=== PATIENT | female | born 1980 | race Caucasian/White ===

== ENCOUNTER 2020-02-17 15:39 | Outpatient (RCR) | payer OTHER, SELFPAY ==
[2020-02-17] MEDS: RHO(D) IMMUNE GLOBULIN 300 MCG SYRINGE IM (19:12)
== END 2020-05-17 23:59 | disposition home or self-care (01) ==
LOC: ANHLAB 15:39
PROVIDERS: PCP Family Medicine; Visit Provider Obstetrics & Gynecology Gynecology
DX: Z29.13 Encounter for prophylactic Rho(D) immune globulin (principal); O36.0990 Maternal care for other rhesus isoimmunization, unspecified trimester, not applicable or unspecified; O26.851 Spotting complicating pregnancy, first trimester; Z3A.00 Weeks of gestation of pregnancy not specified
CPT/HCPCS: 36415; 85461; 90384; 96372; J2790

== ENCOUNTER → 2020-03-03 10:56 | Outpatient (CLI) | payer OTHER, SELFPAY ==
--- NOTE | ~2020-03-03 | US_ITS ---
EXAMINATION: US OB limited DATE: 03/03/2020 11:19 INDICATION: Subchorionic hematoma, first trimester TECHNIQUE: Real-time pelvic transabdominal and transvaginal ultrasound was performed. COMPARISON: None. FINDINGS: The uterus measures 12.1 x 5.7 x 8.1 cm. There is an intrauterine gestational sac. There i s a 2.4 x 1.3 x 3.2 cm complex hypoechoic area adjacent to the gestational sac. A yolk sac is identif ied. heart motion is identified measuring 190 beats per minute (bpm) by M-mode Doppler. IMPRESSION: 1. Complex hypoechoic area adjacent to the gestational sac which could reflect subchorionic hematoma or less likely failed twin . 2. Live intrauterine . Reviewed, dictated and finalized at location A. ANCE MANAGER
== END ==
PROVIDERS: PCP Family Medicine; Visit Provider Obstetrics & Gynecology Gynecology
DX: O46.90 Antepartum hemorrhage, unspecified, unspecified trimester (principal); Z3A.00 Weeks of gestation of pregnancy not specified
CPT/HCPCS: 76815

== ENCOUNTER 2020-03-07 14:47 | Observation (INO) | payer OTHER, SELFPAY ==
--- NOTE | ~2020-03-07 | MR_ITS ---
EXAMINATION: MR brain/brain stem wo con DATE: 03/08/2020 11:29 INDICATION: Right-sided cluster headache for the past 10 weeks. TECHNIQUE: Magnetic resonance imaging (MRI) of the brain and brainstem was performed without intraven ous contrast. Sequences included sagittal and axial T1-weighted SE, axial diffusion-weighted FS SE, a xial T2*-weighted GRE, axial T2-weighted FLAIR, and axial T2-weighted FSE. Apparent diffusion coeffi cient (ADC) maps were created. COMPARISON: None. FINDINGS: There are no areas of restricted diffusion to suggest acute infarction. No intracranial hemorrhage or abnormal intracranial mass lesion. Single nonspecific small focus of increased T2-weighted signal in tensity in the cerebral white matter of the paramedial right frontal lobe which is within normal limi ts for age. There are no intraparenchymal signal abnormalities seen on the other pulse sequences. The ventricles are symmetric and normal in size. There are no abnormal extra-axial fluid collections. Fl ow voids are seen in the cerebral arteries on the T2-weighted sequences consistent with their expecte d patency. Mild mucosal thickening the bilateral ethmoid sinuses. Visualized orbits and soft tissues are unremarkable. There are no areas of abnormal enhancement on the post contrast images. IMPRESSION: 1. Single small focus of nonspecific white matter T2 hyperintensity in the right frontal lobe which i s within normal limits for age. No acute intracranial process. Reviewed, dictated and finalized at location A. OM TURNING LATHE TENDER IMPRESSION: 1. Single small focus of nonspecific white matter T2 hyperintensity in the righ t frontal lobe which is within normal limits for age. No acute intracranial pro cess.
[2020-03-07 14:54] VITALS: BP 136/80; PULSE 100; RESP 16; TEMP 36.8; O2SAT 100
[2020-03-07 16:10] VITALS: BP 137/91; PULSE 91; RESP 18; TEMP 37.3; O2SAT 100
--- NOTE | 2020-03-07 16:15 | ED.HA ---
HPI - Headache General Chief Complaint: Headache Stated Complaint: MIGRAINE/ 10 WEEKS Time Seen by Provider: 03/07/20 15:32 Source: patient Mode of arrival: ambulatory Limitations: no limitations History of Present Illness HPI Narrative: Patient is a 39-year-old female who presents complaining of cluster headaches for the past few weeks. Patient is 10 weeks with an embryo transfer. 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 She reports taking large amounts of hormones such as progesterone and estrogen twice daily x9 weeks and right before Pep. She reports cluster headache starting 03/02 and increasing frequency and pain over the past 1 to 2 days. Patient keeps a journal with symptoms and times of headaches. Patient reports seeing PCP earlier this week given cefdinir for sinus infection and instructed to use a Sandra pot. She reports calling MACHINE HEEL SPRAYER, Dr. Oates, who directed her for ED evaluation today. She denies symptoms at this time. MD elicited complaint: headache Related Data Home Medications Medication Instructions Recorded Confirmed cholecalciferol (vitamin D3) 250 250 mcg PO WEEKLY 10/08/19 10/25/19 mcg (10,000 unit) capsule vitamin no.138-folic acid tablet PO 10/08/19 10/25/19 400 mcg-dha 25 mg chewable tablet cetirizine 10 mg capsule 10 mg PO DAILY 10/11/19 10/25/19 levothyroxine 25 mcg capsule 50 mcg PO DAILY cap 03/04/20 Allergies Allergy/AdvReac Type Severity Reaction Status Date / Time Cephalosporins Allergy Unknown Rash Verified 03/07/20 14:48 Penicillins Allergy Unknown Hives / Verified 03/07/20 14:48 Red Face Review of Systems Review of Systems: Narrative: CONSTITUTIONAL: Denies fever, chills, or sweats. EYES: Denies visual changes, redness, or discharge. ENT: Denies rhinorrhea, congestion, sore throat, or otalgia. CARDIOVASCULAR: Denies chest pain, palpitations, or edema. RESPIRATORY: Denies cough or dyspnea. GASTROINTESTINAL: Denies abdominal pain, nausea, vomiting, or diarrhea. GENITOURINARY: Denies dysuria or hematuria. SKIN: Denies rash or itching. MUSCULOSKELETAL: Denies back pain, joint pain, or myalgia. NEUROLOGIC: Reports intermittent headache with increased frequency PSYCHIATRIC: Denies anxiety or depression. [facility] Past Medical History Medical History (Updated 03/07/20 @ 17:23 by DUNIA Tavares) Active heathcare surrogate Asthma Congenital heart disease depression SVT (supraventricular tachycardia) Surgical History Surgical History [place] teeth extracted Family History Family History (Updated 03/07/20 @ 16:19 by DUNIA Tavares) Sibling Family history of cardiovascular disease Other Diabetes mellitus Other Cancer Hypertension Social History Social History (Updated 03/07/20 @ 16:19 by DUNIA Tavares) Smoking status: Never smoker Second hand tobacco smoke exposure: No Alcohol intake: never Substance use: never 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 HEAD: Normocephalic, atraumatic. EYES: EOMI. No redness or drainage. ENT: Mucous membranes pink and moist. CHEST: No respiratory distress. HEART: Regular rate and rhythm. No murmur appreciated. Normal peripheral pulses. EXTREMITIES: Normal range of motion. SKIN: Warm, dry, no rash. NEURO: No focal deficits. Alert and oriented x3. Gait steady. PSYCH: Normal affect. No signs of depression or anxiety. Course Vital Signs Vital signs: Vital Signs Temperature 36.8 C 03/07/20 14:54 Pulse Rate 100 03/07/20 14:54 Respiratory Rate 16 03/07/20 14:54 Blood Pressure 136/80 03/07/20 14:54 Pulse Oximetry 100 03/07/20 14:54 Temperature 36.8 C 03/07/20 14:54 Pulse Rate 100 03/07/20 1
--- NOTE | 2020-03-07 16:18 | PC.NURSE ---
This is an invitro surrogate with embryo transfer date of 01/14/2020. Patient is currently 10 weeks EGA. She has had to previous natural pregnancies that were both complicated by gestational SVT for which she took metoprolol during the .
[2020-03-07 17:56] VITALS: BP 124/97; PULSE 85; RESP 18; TEMP 36.8; O2SAT 100
[2020-03-07 18:56] VITALS: BP 125/92; PULSE 78; RESP 18; TEMP 36.7; O2SAT 100
[2020-03-07 19:12] VITALS: BP 136/79; PULSE 62; RESP 17; TEMP 36.4; O2SAT 100
[2020-03-07 19:13] VITALS: BMI 25.7
[2020-03-07 21:32] VITALS: BP 124/78; PULSE 75; RESP 18; TEMP 36.8; O2SAT 100
--- NOTE | 2020-03-07 23:28 | PC.NURSE ---
Pt c/o of having sharp headache pain on right side of head and right eye. Lasted for about an hour and half. Turned lights off in room and gave her an ice pack. Her headache did completely go away at 2215.
[2020-03-08 05:31] VITALS: BP 112/62; PULSE 70; RESP 16; TEMP 36.1; O2SAT 100
[2020-03-08 08:00] VITALS: O2SAT 100
--- NOTE | 2020-03-08 09:48 | PM.IMHP ---
H&P: HPI History of Present Illness Date/Time: 03/08/20 09:48 Chief Complaint: headache Narrative: Nhung Stanton is a 39 year old female at about 10 weeks EGA here with new onset headaches through ER. Patient states at peak pain is 9-10/10 and that lasts for 15-30 sec then tapers off over next 5-40 min. Longest peak has been 15 minutes. Cycles about 8-10x then gets a several hour break. This has been getting worse over last 10 days. Never had this type of headache before. Has just stopped her hormones after embryo transfer for sister. No other changes. She did try tylenol several times with no change. [facility] Past Medical History Medical History (Updated 03/07/20 @ 17:23 by DUNIA Tavares) Active heathcare surrogate Asthma Congenital heart disease depression SVT (supraventricular tachycardia) Surgical History Surgical History [place] teeth extracted Family History Family History Sibling Family history of cardiovascular disease Other Diabetes mellitus Other Cancer Hypertension Social History Social History (Updated 03/07/20 @ 16:19 by DUNIA Tavares) Smoking status: Never smoker Second hand tobacco smoke exposure: No Alcohol intake: never Substance use: never Substance use type: does not use 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 Gender identity (if verbalized by the patient): Female Spiritual care concerns: No Meds Home Medications and Allergies Home Medications Medication Instructions Recorded Confirmed Type cholecalciferol (vitamin D3) 250 250 mcg PO USEASDIRECTD 10/08/19 03/07/20 History mcg (10,000 unit) capsule vitamin no.138-folic acid 400 tablet PO DAILY 10/08/19 03/07/20 History 400 mcg-dha 25 mg chewable tablet cetirizine 10 mg capsule 10 mg PO DAILY 10/11/19 03/07/20 History cefdinir 300 mg capsule 300 mg PO Q12H #20 cap 03/04/20 03/07/20 Rx levothyroxine 25 mcg capsule 50 mcg PO DAILY cap 03/04/20 03/07/20 History aspirin 81 mg PO DAILY 03/07/20 03/07/20 History Allergies Allergy/AdvReac Type Severity Reaction Status Date / Time Cephalosporins Allergy Unknown Rash Verified 03/07/20 19:38 Penicillins Allergy Unknown Hives / Verified 03/07/20 19:38 Red Face Vital Signs Vital Signs - 24 hr 03/07/20 14:54 03/07/20 16:10 03/07/20 17:56 Temperature 98.2 F 99.2 F 98.2 F Pulse Rate 100 91 85 Respiratory Rate 16 18 18 Blood Pressure 136/80 137/91 H 124/97 H Pulse Oximetry 100 100 100 03/07/20 18:56 03/07/20 19:12 03/07/20 21:32 Temperature 98.0 F 97.6 F 98.3 F Pulse Rate 78 62 75 Respiratory Rate 18 17 18 Blood Pressure 125/92 H 136/79 124/78 Pulse Oximetry 100 100 100 03/08/20 05:31 Temperature 97.0 F L Pulse Rate 70 Respiratory Rate 16 Blood Pressure 112/62 Pulse Oximetry 100 Exam Const: General: cooperative and healthy appearing Neck: Neck: supple Resp: Effort & Inspection: normal respiratory effort Auscultation: clear to auscultation bilaterally Cardio: Rate: regular rate Rhythm: regular rhythm GI: GI Palp: No abdominal tenderness and Yes Soft to palpation Assessment and Plan Assessment and plan (1) Headache: Qualifiers: Headache chronicity pattern: acute headache Headache type: unspecified Intractability: intractable Qualified Code(s): R51.9 - Headache, unspecified Code(s): R51.9 - Headache, unspecified Status: Acute Assessment and Plan: description sounds like cluster headaches will order MRI for this am as that was the plan per ER PUBLIC RELATIONS CONSULTANT(they did not order) if MRI normal, will get neurology consult for outpatient and set up home O2
[2020-03-08 14:00] VITALS: BP 122/75; PULSE 87; RESP 17; TEMP 36.6; O2SAT 100
== END 2020-03-08 18:45 | disposition home or self-care (01) ==
LOC: ANHED 17:50 → ANH2MED 18:30
PROVIDERS: Admitting Provider Obstetrics & Gynecology Gynecology; Emergency Provider Nurse Practitioner; PCP Family Medicine; Visit Provider Obstetrics & Gynecology Gynecology
DX: O26.891 Other specified pregnancy related conditions, first trimester (principal); R51.9 Headache, unspecified; Z3A.10 10 weeks gestation of pregnancy
CPT/HCPCS: 70551; 99285; G0378

== ENCOUNTER → 2020-03-30 10:16 | Outpatient (CLI) | payer OTHER, SELFPAY ==
--- NOTE | ~2020-03-30 | US_ITS ---
EXAMINATION: US OB limited DATE: 03/30/2020 10:40 INDICATION: Subchorionic hematoma TECHNIQUE: Real-time ultrasound of the pelvis was performed. The interpreting radiologist was not pre sent for the study. COMPARISON: 03/03/2020 FINDINGS: The uterus measures 16.2 x 7.4 x 8.4 cm. There is a single living fetus in vertex presentation. Persi stent 2.7 x 1.6 x 1.5 cm hypoechoic likely subchorionic hematoma along the left inferior margin of th e gestational sac. heart rate is 171 beats per minute (bpm). The amniotic fluid index is cm, wh ich is normal. IMPRESSION: 1. Single living fetus in vertex presentation with heart rate of 171 bpm. 2. Persistent small subchorionic hematoma along the left inferior margin of the gestational sac. Reviewed, dictated and finalized at location B. HT REDUCING TECHNICIAN IMPRESSION: 1. Single living fetus in vertex presentation with heart rate of 171 bpm . 2. Persistent small subchorionic hematoma along the left inferior margin of the gestational sac.
== END ==
PROVIDERS: Visit Provider Obstetrics & Gynecology Gynecology
DX: O36.8910 Maternal care for other specified fetal problems, first trimester, not applicable or unspecified (principal); Z3A.00 Weeks of gestation of pregnancy not specified
CPT/HCPCS: 76815

== ENCOUNTER → 2020-04-13 10:46 | Outpatient (CLI) | payer OTHER, SELFPAY ==
--- NOTE | ~2020-04-13 | US_ITS ---
EXAMINATION: US OB follow up DATE: 04/13/2020 11:22 INDICATION: Subchorionic hematoma, second trimester TECHNIQUE: Real-time ultrasound of the pelvis was performed. The interpreting radiologist was not pre sent for the study. COMPARISON: 03/30/2020 FINDINGS: There is a single living fetus in variable presentation. The placenta is anterior/fundal. T here is a 1.6 x 0.5 cm hypoechoic area at the left lower margin of the placenta which is decreased in size. cardiac activity and movement are noted. heart rate is 169 beats per minute (bpm). The amniotic fluid index is subjectively normal. IMPRESSION: 1. Single living fetus in variable presentation. 2. Persistent but decreased hypoechoic area at the left lower margin of placenta, likely resolving he matoma. Reviewed, dictated and finalized at location A. ICAL HAEMATOLOGIST IMPRESSION: 1. Single living fetus in variable presentation. 2. Persistent but decreased hypoechoic area at the left lower margin of placent a, likely resolving hematoma.
== END ==
PROVIDERS: Visit Provider Obstetrics & Gynecology Gynecology
DX: O46.90 Antepartum hemorrhage, unspecified, unspecified trimester (principal); Z3A.00 Weeks of gestation of pregnancy not specified
CPT/HCPCS: 76816

== ENCOUNTER 2020-07-09 11:30 | Outpatient (RCR) | payer OTHER, SELFPAY ==
[2020-07-09 13:03] LABS: Hematocrit 40.5 % (37.0-47.0); Hemoglobin 13.9 g/dL (12.0-15.0)
[2020-07-09 13:23] LABS: Glucose 1 Hour PP 50gm Dose 97 mg/dL
[2020-07-09 14:02] LABS: HIV 1/2 Ab P24 Ag Result Negative (Negative)
[2020-07-09 14:09] LABS: Free T4 Free Thyroxine 0.95 ng/mL (0.78-2.19)
[2020-07-09] MEDS: RHO(D) IMMUNE GLOBULIN 300 MCG/2 ML SYRINGE IM (16:23)
== END 2020-10-07 23:59 | disposition home or self-care (01) ==
LOC: ANHLAB 11:30
PROVIDERS: PCP Family Medicine; Visit Provider Obstetrics & Gynecology Gynecology
DX: Z29.13 Encounter for prophylactic Rho(D) immune globulin (principal); Z11.4 Encounter for screening for human immunodeficiency virus [HIV]; O36.0190 Maternal care for anti-D [Rh] antibodies, unspecified trimester, not applicable or unspecified; Z3A.00 Weeks of gestation of pregnancy not specified
CPT/HCPCS: 36415; 82306; 82947; 84439; 84443; 85014; 85018; 85461; 86703; 90384; 96372; G0432; J2790

== ENCOUNTER 2020-09-08 16:08 | Inpatient (IN) | payer OTHER, SELFPAY ==
[2020-09-08] VITALS (8 sets, daily range): BP systolic 133–148; BP diastolic 80–95; PULSE 65–77; BMI 28.1
--- NOTE | ~2020-09-08 | US_ITS ---
EXAMINATION: US umbilical doppler, US OB follow up EXAM DATE: 09/09/2020 08:15 INDICATION: Preeclampsia. 3rd trimester. TECHNIQUE: Pelvic obstetrical transabdominal sonogram was performed by a technologist. There are mu ltiple grayscale and Doppler images available for interpretation. Comparison is made to prior examina tion from 04/13/2020. FINDINGS: There is a single fetus identified in breech presentation with a heart rate of 134 beats pe r minute. The placenta is located in the posterior fundal position. There is no sonographic evidence of retroplacental hemorrhage identified. The amniotic fluid index is 14.3 centimeters, which is norm al. BIOMETRIC DATA: Biparietal diameter (BPD): 8.7 cm ----------------> 35 weeks 1 day. Head circumference (HC): 32.0 cm ----------------> 36 weeks 0 days. Abdominal circumference (AC): 33.1 cm ----------> 37 weeks 0 days. Femur length (FL): 7.0 cm --------------------------> 35 weeks 6 days. These measurements are concordant. HC/AC ratio is 0.97 (The 5th -- 95th percentile range is 0.93-1.08. Estimated weight is 2935 g +/- 440 g. This is the 43rd percentile when the currently reported clinical gestation age 36 weeks 6 days, clinical estimated date of delivery (URSULA-OPE) 10/01 is used. F etal estimated gestational age based on measurements from this exam is 36 weeks 0 days, with an estim ated date of delivery (URSULA-AUA) 10/07. UMBILICAL ARTERY DOPPLER Systolic/diastolic average is 4.5, individual ratios obtained as follows: Near baby: 6.2, 6.8 Mid aspect: 4.2, 3.3 Near Placenta: 3.1, 3.3 (The 5th -- 95th percentile range is 2.0 -- 3.3). IMPRESSION: 1. Single fetus in breech presentation with heart rate 134 beats per minute. 2. Estimated weight of 2935 grams, 43rd percentile using the currently reported clinical gesta tion age of 36 weeks 6 days, URSULA(OPE) 10/01. 3. Elevated umbilical artery systolic/diastolic ratio average 4.5. 4. Normal amniotic fluid index 14.3 cm. Reviewed, dictated and finalized at location A. IMPRESSION: 1. Single fetus in breech presentation with heart rate 134 beats per minute. 2. Estimated weight of 2935 grams, 43rd percentile using the currently r eported clinical gestation age of 36 weeks 6 days, URSULA(OPE) 10/01. 3. Elevated umbilical artery systolic/diastolic ratio average 4.5. 4. Normal amniotic fluid index 14.3 cm.
--- NOTE | 2020-09-08 16:08 | OBADM ---
This patient, Nhung Stanton, admitted to the OB room OB Post 116 for observation. Patient/family oriented to hospital policies and general routines including ID bracelet, bed and alarms, visiting hours, pain management, procedures, bathroom and other care routines, personal items, smoking policy, room service/diet, and visiting hours. Patient/Family are encouraged to report perceived risks to care and to ask questions if they do not understand what they are told or what they should do.
--- NOTE | 2020-09-08 18:30 | PC.NURSE ---
Restinig quietly. Denies any pain. Discussed plan of care for tonight with blood pressures, AM labs, NST and AM ultrasound. 24 hour urine collection in progress and pt verbalizes understanding of instructions with collection.
--- NOTE | 2020-09-08 21:40 | PC.NURSE ---
Dr. Oates notified of pt blood pressures and pt. having decel. Will monitor heart tones tonight.
[2020-09-09] VITALS (11 sets, daily range): BP systolic 113–146; BP diastolic 68–98; PULSE 57–96
--- NOTE | 2020-09-09 01:08 | PC.NURSE ---
2150 Pt states she is ready for sleep. Appears comfortable. Vital signs as noted. Pt advised we will monitor FHT tonight due to isolated decel.Pt continues to collecr 24 hour urine.
[2020-09-09 05:11] LABS: Basophils Percent Auto 0.3 % (0.2-1.2); Eosinophils Absolute Auto 0.2 K/mm3 (0-0.3); Eosinophils Percent Auto 2.1 % (0-4.4); Hematocrit 41.2 % (37.0-47.0); Hemoglobin 13.9 g/dL (12.0-15.0); Immature Granulocyte Absolute 0.05 K/mm3 (0.00-0.031); Immature Granulocyte Percent A 0.6 % (0-0.5); Lymphocytes Absolute Auto 1.84 K/mm3 (0.9-3.2); Lymphocytes Percent Auto 21.3 % (18.3-44.2); Mean Corpuscular HGB Conc 33.7 g/dl (32-36); Mean Corpuscular Hemoglobin 32.8 pg (26-34); Mean Corpuscular Volume 97.2 fl (80-100); Mean Platelet Volume 12.2 fl (7.4-10.4); Monocytes Absolute Auto 0.8 K/mm3 (0.1-0.6); Monocytes Percent Auto 9.4 % (2.6-8.5); Neutrophils Absolute Auto 5.7 K/mm3 (1.3-6.7); Neutrophils Percent Auto 66.3 % (45.5-73.1); Platelet Count Result 97 k/mm3 (150-375); Red Blood Count 4.24 M/mm3 (4.2-5.4); Red Cell Distribution Width 12.6 % (11.5-14.5); White Blood Count 8.6 K/mm3 (4.5-10.0)
[2020-09-09 05:45] LABS: Alanine Aminotransferase 14 U/L (4-35); Albumin Level 3.2 g/dL (3.5-5.1); Alkaline Phosphatase 120 U/L (38-126); Anion Gap 6 mmol/L (8-16); Aspartate Amino Transferase 27 U/L (14-36); Bilirubin,Total 0.8 mg/dL (0.2-1.3); Blood Urea Nitrogen 12 mg/dL (7-17); Carbon Dioxide 22 mmol/L (22-30); Chloride 109 mmol/L (98-107); Estimated CRCL calculation 97 ml/min; Estimated Glomerular Filt Rate > 60; Glucose 76 mg/dL (65-105); Sodium 137 mmol/L (137-145); Uric Acid 6.3 mg/dL (2.5-7.5)
--- NOTE | 2020-09-09 08:23 | PC.NURSE ---
Dr Thacker here to see patient, plan of care discussed. Order for intermittent monitors. Plan to complete 24 hour urine and wait for results.
--- NOTE | 2020-09-09 09:44 | PC.NURSE ---
Dr Thacker notified of US results. No further orders at this time.
--- NOTE | 2020-09-09 16:28 | PM.OBPNVD ---
OB - PN: Subj Subjective Date/time seen: 09/09/20 16:28 Patient reports feels okay multiple questions about plan of care. Sister on phone present. concerns about breech baby. OB - PN: Obj Data Labs CBC & Chem 7: 09/09/20 04:57 09/09/20 04:57 Labs: Laboratory Results - last 24 hr 09/09/20 09/09/20 04:57 04:57 WBC 8.6 RBC 4.24 Hgb 13.9 Hct 41.2 MCV 97.2 MCH 32.8 MCHC 33.7 RDW 12.6 Plt Count 97 L MPV 12.2 H Immature Gran % (Auto) 0.6 H Neut % (Auto) 66.3 Lymph % (Auto) 21.3 [place] % (Auto) 9.4 H Eos % (Auto) 2.1 Baso % (Auto) 0.3 Lymph # (Auto) 1.84 [place] # (Auto) 0.8 H Eos # (Auto) 0.2 Baso # (Auto) 0.0 Abs Immat Gran (auto) 0.05 H Absolute Neuts (auto) 5.7 Absolute Nucleated RBC 0.0 Nucleated RBC % 0.0 Sodium 137 Potassium 4.0 Chloride 109 H Carbon Dioxide 22 Anion Gap 6 L BUN 12 Creatinine 0.80 Estim Creat Clear Calc 97 Estimated GFR > 60 Glucose 76 Uric Acid 6.3 Calcium 9.0 Total Bilirubin 0.8 AST 27 ALT 14 Alkaline Phosphatase 120 Total Protein 6.0 L Albumin 3.2 L Imaging Radiologist's impression: Impressions Doppler Study 09/09/20 08:38 IMPRESSION: 1. Single fetus in breech presentation with heart rate 134 beats per minute. 2. Estimated weight of 2935 grams, 43rd percentile using the currently reported clinical gestation age of 36 weeks 6 days, URSULA(OPE) 10/01. 3. Elevated umbilical artery systolic/diastolic ratio average 4.5. 4. Normal amniotic fluid index 14.3 cm. Obstetrics Ultrasound 09/09/20 08:38 IMPRESSION: 1. Single fetus in breech presentation with heart rate 134 beats per minute. 2. Estimated weight of 2935 grams, 43rd percentile using the currently reported clinical gestation age of 36 weeks 6 days, URSULA(OPE) 10/01. 3. Elevated umbilical artery systolic/diastolic ratio average 4.5. 4. Normal amniotic fluid index 14.3 cm. OB - PN A/P Assessment and Plan (1) Headache: Qualifiers: Headache chronicity pattern: acute headache Headache type: unspecified Intractability: intractable Qualified Code(s): R51.9 - Headache, unspecified Code(s): R51.9 - Headache, unspecified Status: Acute (2) PIH ( induced hypertension): Code(s): O13.9 - Gestational [-induced] hypertension without significant proteinuria, unspecified trimester Status: Acute Assessment and Plan: 24 hour urine pending. Delivery at 37 weeks Preeclamptic. Time Spent With Patient Time: Total time spent is greater than 50% in coordination of care (as documented) at patient's floor/unit and/or counseling patient:
[2020-09-09 18:20] LABS: Collection Time Urine 24 HOURS
[2020-09-09 18:28] LABS: Specific Gravity Ur 1.004
[2020-09-09 18:29] LABS: Patient Weight 190 Lbs
[2020-09-09 18:30] LABS: Total Volume 24 Hour Urine 7000 ml
--- NOTE | 2020-09-09 18:34 | PC.NURSE ---
Dr Kovasc updated on 24 hour urine being sent out for testing. Will not have the result tonight. Plan of expected management through the night.
[2020-09-09 18:41] LABS: Creatinine Clearance Urine 91.9 ml/min (75-125); Creatinine Urine 17.6 mg/dL
[2020-09-10] VITALS (89 sets, daily range): BP systolic 119–147; BP diastolic 74–97; PULSE 48–104; RESP 12–20; TEMP 35.7–36.6; O2SAT 74–100; BMI 28.1
[2020-09-10 05:00] LABS: Alanine Aminotransferase 16 U/L (4-35); Albumin Level 3.8 g/dL (3.5-5.1); Alkaline Phosphatase 145 U/L (38-126); Anion Gap 7 mmol/L (8-16); Aspartate Amino Transferase 31 U/L (14-36); Bilirubin,Total 0.8 mg/dL (0.2-1.3); Blood Urea Nitrogen 12 mg/dL (7-17); Calcium 9.5 mg/dL (8.4-10.2); Carbon Dioxide 23 mmol/L (22-30); Chloride 107 mmol/L (98-107); Estimated CRCL calculation 87 ml/min; Estimated Glomerular Filt Rate > 60; Glucose 80 mg/dL (65-105); Potassium 3.8 mmol/L (3.4-5.0); Sodium 137 mmol/L (137-145)
[2020-09-10 05:13] LABS: Hematocrit 46.9 % (37.0-47.0); Hemoglobin 15.8 g/dL (12.0-15.0); Mean Corpuscular HGB Conc 33.7 g/dl (32-36); Mean Corpuscular Volume 97.9 fl (80-100); Mean Platelet Volume 12.8 fl (7.4-10.4); Platelet Count Result 119 k/mm3 (150-375); Red Blood Count 4.79 M/mm3 (4.2-5.4); Red Cell Distribution Width 12.8 % (11.5-14.5); White Blood Count 10.3 K/mm3 (4.5-10.0)
--- NOTE | 2020-09-10 07:47 | PM.IMHP ---
H&P: HPI History of Present Illness Date/Time: 09/10/20 07:47 Chief Complaint: A headache Narrative: the patient is a 39-year-old 3 para 2 admitted with headache at 36-5/7 weeks initially now 37 weeks. Initial patient labs revealed probable preeclampsia and blood pressures were in the 130s to 140s over 90s. Patient has mild headache on and off since admission with no other PIH complaints. Patient reports good movement. ultrasound revealed the infant in the breech presentation with elevated Dopplers. The plan is to proceed with primary today. [facility], [facility] Past Medical History Medical History (Updated 09/10/20 @ 07:54 by Fatemeh Oates MD) Active heathcare surrogate is her sister's child Asthma Cluster headaches Hypothyroid (normal spontaneous vaginal delivery) 2009 twins 2012 PIH ( induced hypertension) depression SVT (supraventricular tachycardia) Surgical History Surgical History [place] teeth extracted Family History Family History Sibling Family history of cardiovascular disease Other Diabetes mellitus Other Cancer Hypertension Social History Social History (Updated 03/07/20 @ 16:19 by DUNIA Tavares) Smoking status: Never smoker Second hand tobacco smoke exposure: No Alcohol intake: never Substance use: never Substance use type: does not use 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 Gender identity (if verbalized by the patient): Female Spiritual care concerns: No Meds Home Medications and Allergies Home Medications Medication Instructions Recorded Confirmed Type cholecalciferol (vitamin D3) 250 250 mcg PO USEASDIRECTD 10/08/19 08/20/20 History mcg (10,000 unit) capsule vitamin no.138-folic acid 400 tablet PO DAILY 10/08/19 08/20/20 History 400 mcg-dha 25 mg chewable tablet cetirizine 10 mg capsule 10 mg PO DAILY 10/11/19 08/20/20 History levothyroxine 25 mcg capsule 50 mcg PO DAILY cap 03/04/20 08/20/20 History aspirin 81 mg PO DAILY 03/07/20 08/20/20 History Allergies Allergy/AdvReac Type Severity Reaction Status Date / Time Cephalosporins Allergy Unknown Rash Verified 03/07/20 19:38 Penicillins Allergy Unknown Hives / Verified 03/07/20 19:38 Red Face Vital Signs Vital Signs - 24 hr 09/09/20 09:02 09/09/20 10:47 09/09/20 13:30 Temperature Pulse Rate 69 74 89 Respiratory Rate Blood Pressure 138/91 H 134/85 127/84 Pulse Oximetry 09/09/20 15:31 09/09/20 18:01 09/09/20 18:03 Temperature Pulse Rate 76 96 96 Respiratory Rate Blood Pressure 145/89 H 146/97 H Pulse Oximetry 09/09/20 20:58 09/09/20 21:00 09/10/20 01:47 Temperature 96.8 F L Pulse Rate 81 77 80 Respiratory Rate 20 Blood Pressure 145/98 H 135/91 H 119/74 Pulse Oximetry 09/10/20 01:51 09/10/20 04:37 Temperature Pulse Rate 70 Respiratory Rate Blood Pressure 130/88 Pulse Oximetry 98 Exam Const: General: healthy appearing and no acute distress Nutritional Appearance: average body habitus Resp: Effort & Inspection: normal respiratory effort GI: GI Palp: Yes Other GI palpation findings present (gravid ) H&P: Results Labs Labs: Short CBC 09/09/20 09/09/20 09/09/20 Range/Units 04:57 04:57 17:12 WBC (4.5-10.0) K/mm3 RBC 4.24 (4.2-5.4) M/mm3 Hgb (12.0-15.0) g/dL Hct (37.0-47.0) % MCV 97.2 (80-100) fl MCH 32.8 (26-34) pg MCHC 33.7 (32-36) g/dl RDW 12.6 (11.5-14.5) % Plt Count (150-375) k/mm3 MPV 12.2 H (7.4-10.4) fl Immature Gran % (Auto) 0.6 H (0-0.5) % Neut % (Auto) 66.3 (45.5-73.1) % Lymph % (Auto) 21.3 (18.3-44.2) % [place] % (Auto) 9.4 H (2.6-8.5) % Eos % (Auto) 2.1 (0-4.4) % Baso % (Auto) 0.3 (0.2-1.2) % Lymph # (Aut
--- NOTE | 2020-09-10 07:59 | WPDHPUPDATE1 ---
History and Physical Update Update Date/Time: 09/10/20 07:59 History and Physical has been reviewed, including an updated exam of the patient. There are NO changes in the patient's condition. Risks, benefits, and alternatives have been discussed and questions answered. Patient agrees to proceed with procedure.
[2020-09-10] MEDS: LEVOTHYROXINE SODIUM 50 MCG TABLET PO (08:39)
[2020-09-10 09:32] LABS: Total Protein Urine 24 Hr 420 mg/24hr (0-149)
[2020-09-10 09:33] LABS: Total Protein Urine Random < 6.0 mg/dL (0.0-11.9)
[2020-09-10] MEDS: LACTATED RINGERS 1,000 ML 125 ML IV CONT ×2 (10:35→11:27)
[2020-09-10 12:11] LABS: Rapid Plasma Reagin Non-Reactive (NonReactive)
[2020-09-10] MEDS: CLINDAMYCIN 900 MG/D5W 50 ML 900 MG/50 ML PIGGYBACK 50 MG IVPB (12:28)
[2020-09-10] MEDS: GENTAMICIN SULFATE INJ 370 MG in DEXTROSE 5% 100 ML 100 MG IVPB (12:35)
--- NOTE | 2020-09-10 12:53 | WPDANESEFPP ---
Anes - Eval Final PreProcedure Day of Procedure 09/10/20 12:53 Patient weight: overweight Heart: regular rate and rhythm Lungs: clear to auscultation Airway: Mallampati scale class II Neurological: alert and oriented Last oral intake: >/= 8 hours ASA classification: II Emergent: no Anesthetic plan: proceed Anesthesia type and monitoring: regional spinal and standard monitoring Informed Consent: The patient's anesthetic plan and its attendant risks and benefits were discussed with the patient/family/POA. Questions were solicited and answers provided to the satisfaction of the patient/family/POA.
[2020-09-10] MEDS: KETOROLAC 30 MG/ML VIAL (*BKC) IV PUSH ×2 (13:14→22:41)
--- NOTE | 2020-09-10 13:25 | W.PM.PROC2 ---
Procedure Note - Detailed Date of Procedure 09/10/20 Pre-op Diagnosis IUP 37 weeks preeclampsia breech velementous insertion and bilobed placenta Post-op Diagnosis same Procedure Performed LT Surgeon Fatemeh Oates MD Anesthesia spinal Findings Female infant in the single footling breech presentation. Normal appearing tubes and ovaries. The uterus is heart-shaped with no septum. Apgars of 9 and 9 and the infant weighed 6 lb 6 oz Description of Procedure the patient was taken to the operating room and placed under spinal anesthesia in the dorsal supine position with a leftward tilt. Once anesthesia was deemed adequate she was prepped and draped in usual sterile fashion. A Pfannenstiel skin incision was made with a scalpel and carried down to the underlying layer of fascia which was nicked in the midline and extended laterally using Minor scissors. The fascia was dissected off using sharp and blunt dissection while tenting with Ochsner. The rectus muscles were in the midline and peritoneum was tented and entered with Metzenbaum. The incision is extended with blunt traction. the bladder blade is placed and the vesicouterine peritoneum tented entered with Metzenbaum oz. The bladder flap was created using sharp and blunt dissection. The bladder blade is replaced. The lower uterine segment was incised in a transverse fashion with the scalpel and extended laterally using blunt traction. The membranes were ruptured and clear fluid noted. The 's is noted to be and the single footling breech presentation the foot is delivered and the hips rotated and delivered to the scapula . The was rotated and the right arm splinted and delivered with the infant was rotated and the left arm was splinted and delivered. The is extended on the abdomen and the head delivered spontaneously. The cord was clamped and cut and the handed to the waiting OB nurse. The placenta was removed using manual traction. The placenta is noted to have to completely by lobes with only intervening membrane and vessels. The cord is inserted at the edge of the larger placental lobe. The uterus was cleared of all clots and debris and exteriorized. The lower uterine segment was then closed using 0 Monocryl in a running locked fashion with a same suture used to imbricate and obtain hemostasis. The cul-de-sac is irrigated and the uterus is returned to the abdomen. The gutters are irrigated. The incision was again inspected and noted to be hemostatic. The fascia was closed using 0 Vicryl in a running fashion. Subcutaneous tissues are irrigated and made hemostatic using Bovie cautery. Skin incision was closed using 4 0 Vicryl in a subcuticular fashion. Dermaflex was placed over the incision. Sponge, needle, and instrument counts are correct per the OR staff. Patient received clindamycin and gentamicin prior to skin incision due to allergies to both penicillin and cephalosporin. Estimated Blood Loss 275 Urine Output 300 Drains Yes (ballard) Pathology yes (placenta) Complications No immediate complications Condition stable Disposition floor
--- NOTE | 2020-09-10 13:34 | PM.OBDSVD ---
DS: Admitting Diagnosis Admitting Diagnosis Admitting Diagnosis: IUP 36 5/7 weeks headache DS: Discharge Diagnosis Discharge Diagnosis (1) delivery delivered: Code(s): O82 - Encounter for delivery without indication Status: Acute (2) Preeclampsia: Code(s): O14.90 - Unspecified pre-eclampsia, unspecified trimester Status: Acute (3) 37 weeks gestation of : Code(s): Z3A.37 - 37 weeks gestation of Status: Acute (4) Breech presentation: Code(s): O32.1XX0 - Maternal care for breech presentation, not applicable or unspecified Status: Acute OB - DS: Summary OB Procedures : NST and Ultrasound OB Procedures Intrapartum: low cervical, transverse OB Procedures: : None Peripartum Data Delivery Method: Section Procedures: Procedures Operation Date: 09/10/20 12:30 <No data on this case meets the specified criteria> complications: none Status at Discharge Functional status at discharge: independent ambulation Overall status at discharge: patient is progressing back to baseline Time Spent with Patient Time attestation: Total time spent providing and/or coordinating discharge services: DS: Data Data Completed and Pending Pending studies at discharge: Pending at discharge 09/10/20 12:57 Surgical [PTH] Routine Labs on day of discharge: Labs from last 24 hours 09/10/20 09/10/20 09/10/20 04:35 04:35 04:35 WBC RBC Hgb Hct MCV MCH MCHC RDW Plt Count MPV Sodium 137 Potassium 3.8 Chloride 107 Carbon Dioxide 23 Anion Gap 7 L BUN 12 Creatinine 0.90 Estim Creat Clear Calc 87 Estimated GFR > 60 Glucose 80 Uric Acid 6.0 Calcium 9.5 Total Bilirubin 0.8 AST 31 ALT 16 Alkaline Phosphatase 145 H Total Protein 7.0 Albumin 3.8 U Random Total Protein Ur 24 Hour Volume Urine Creatinine Creatinine Clearance Ur Total Protein 24 Hr RPR Non-reactive Blood Type B Negative Antibody Screen Positive Antibody Identification Passive Due to RH Imm Glob Antigen Identification Cancelled DESTINEY, IgG Interpret Not Performed DESTINEY, Poly Interpret Negative DESTINEY, Complement Interp Not Performed 09/10/20 09/09/20 04:35 17:12 WBC 10.3 H RBC 4.79 Hgb 15.8 H Hct 46.9 MCV 97.9 MCH 33.0 MCHC 33.7 RDW 12.8 Plt Count 119 L MPV 12.8 H Sodium Potassium Chloride Carbon Dioxide Anion Gap BUN Creatinine Estim Creat Clear Calc Estimated GFR Glucose Uric Acid Calcium Total Bilirubin AST ALT Alkaline Phosphatase Total Protein Albumin U Random Total Protein < 6.0 Ur 24 Hour Volume 7000 Urine Creatinine 17.6 Creatinine Clearance 91.9 Ur Total Protein 24 Hr 420 H RPR Blood Type Antibody Screen Antibody Identification Antigen Identification DESTINEY, IgG Interpret DESTINEY, Poly Interpret DESTINEY, Complement Interp Discharge Plan Discharge Attending physician on discharge: Fatemeh Oates Discharging Clinician: Fatemeh Oates Patient Disposition: Home, Self-Care Activity: may shower, july drive after 2 weeks and pelvic rest Diet: regular Wound Care Instructions: incision open to air Patient Instructions: Antibiotic Form Stand Alone Forms: General Discharge Information Follow-up/Referrals: Fatemeh Oates MD [Physician] - 1 Week Discharge Medications: New hydrocodone-acetaminophen 5-325 mg Tablet 1 tablet PO Q3H PRN (Reason: Moderate Pain (4-6)) Qty: 20 RF: 0 Continued cholecalciferol (vitamin D3) 250 mcg (10,000 unit) capsule 250 mcg PO USEASDIRECTD RF: 0 Alive 400 mcg- 25 mg tablet,chewable 400 tablet PO DAILY RF: 0 levothyroxine 25 mcg capsule 50 mcg PO DAILY RF: 0 Discontinued cetirizine 10 mg cap
[2020-09-10] MEDS: OXYTOCIN 30 UNITS/NS 500 ML 30 UNITS/500 ML BAG 125 UNITS IV CONT (14:30)
[2020-09-10] MEDS: MAGNESIUM SULF 4 GM/WATER100ML 4 GM/100 ML BAG IVPB (14:31)
[2020-09-10] MEDS: MAGNESIUM SULF 20GM/WATER500ML 500 ML 50 MG IV CONT (15:01)
[2020-09-10] MEDS: HYDROcodone/acetaminophen (*CRX) 5-325 MG TABLET 1 TAB PO ×2 (16:47→22:41)
--- NOTE | 2020-09-10 17:23 | PC.NURSE ---
Patient transferred to post room #1723 via stretcher. Support person present. Oriented to unit, room, information board, rooming in, admission packet and security measures. Patient verbalizes understanding.
--- NOTE | 2020-09-10 17:45 | PC.NURSE ---
1725--Pt. transferred to room 280 via stretcher and report to [facility] RN to assume care of pt.
[2020-09-11] VITALS (7 sets, daily range): BP systolic 111–138; BP diastolic 70–96; PULSE 59–81; RESP 14–18; TEMP 35.9–37.1; O2SAT 97–100
[2020-09-11] MEDS: SIMETHICONE 80 MG TAB.CHEW PO ×5 (01:20→18:59)
[2020-09-11] MEDS: MAGNESIUM SULF 20GM/WATER500ML 500 ML 50 MG IV CONT (01:20)
[2020-09-11] MEDS: HYDROcodone/acetaminophen (*CRX) 5-325 MG TABLET 1 TAB PO ×3 (04:37→18:58)
[2020-09-11] MEDS: diphenhydrAMINE HCl INJ 50 MG/ML VIAL 12.5 MG IV PUSH (04:39)
[2020-09-11 05:47] LABS: Basophils Percent Auto 0.2 % (0.2-1.2); Eosinophils Percent Auto 0.2 % (0-4.4); Hematocrit 39.7 % (37.0-47.0); Hemoglobin 13.8 g/dL (12.0-15.0); Immature Granulocyte Absolute 0.09 K/mm3 (0.00-0.031); Immature Granulocyte Percent A 0.6 % (0-0.5); Lymphocytes Absolute Auto 1.64 K/mm3 (0.9-3.2); Lymphocytes Percent Auto 10.5 % (18.3-44.2); Mean Corpuscular HGB Conc 34.8 g/dl (32-36); Mean Corpuscular Hemoglobin 33.2 pg (26-34); Mean Corpuscular Volume 95.4 fl (80-100); Mean Platelet Volume 12.7 fl (7.4-10.4); Monocytes Percent Auto 6.2 % (2.6-8.5); Neutrophils Absolute Auto 12.8 K/mm3 (1.3-6.7); Neutrophils Percent Auto 82.3 % (45.5-73.1); Platelet Count Result 131 k/mm3 (150-375); Red Blood Count 4.16 M/mm3 (4.2-5.4); Red Cell Distribution Width 12.5 % (11.5-14.5); White Blood Count 15.6 K/mm3 (4.5-10.0)
[2020-09-11] MEDS: LEVOTHYROXINE SODIUM 50 MCG TABLET PO (07:44)
--- NOTE | 2020-09-11 07:57 | P.PNOB_ITS ---
OB - PN: Subj Subjective Date/time seen: 09/11/20 07:57 Doing well no complaints pain controlled OB - PN: Obj Data Labs CBC & Chem 7: 09/11/20 04:57 09/10/20 04:35 Labs: Laboratory Results - last 24 hr 09/09/20 09/10/20 09/10/20 17:12 04:35 04:35 WBC RBC Hgb Hct MCV MCH MCHC RDW Plt Count MPV Immature Gran % (Auto) Neut % (Auto) Lymph % (Auto) Bledsoe % (Auto) Eos % (Auto) Baso % (Auto) Lymph # (Auto) Bledsoe # (Auto) Eos # (Auto) Baso # (Auto) Abs Immat Gran (auto) Absolute Neuts (auto) Absolute Nucleated RBC Nucleated RBC % U Random Total Protein < 6.0 Creatinine Clearance 91.9 Ur Total Protein 24 Hr 420 H RPR Non-reactive Blood Type B Negative Antibody Screen Positive Antibody Identification Passive Due to RH Imm Glob Antigen Identification Cancelled DESTINEY, IgG Interpret Not Performed DESTINEY, Poly Interpret Negative DESTINEY, Complement Interp Not Performed 09/11/20 04:57 WBC 15.6 H RBC 4.16 L Hgb 13.8 Hct 39.7 MCV 95.4 MCH 33.2 MCHC 34.8 RDW 12.5 Plt Count 131 L MPV 12.7 H Immature Gran % (Auto) 0.6 H Neut % (Auto) 82.3 H Lymph % (Auto) 10.5 L Bledsoe % (Auto) 6.2 Eos % (Auto) 0.2 Baso % (Auto) 0.2 Lymph # (Auto) 1.64 Bledsoe # (Auto) 1.0 H Eos # (Auto) 0.0 Baso # (Auto) 0.0 Abs Immat Gran (auto) 0.09 H Absolute Neuts (auto) 12.8 H Absolute Nucleated RBC 0.0 Nucleated RBC % 0.0 U Random Total Protein Creatinine Clearance Ur Total Protein 24 Hr RPR Blood Type Antibody Screen Antibody Identification Antigen Identification DESTINEY, IgG Interpret DESTINEY, Poly Interpret DESTINEY, Complement Interp OB - PN A/P Assessment and Plan (1) delivery delivered: Code(s): O82 - Encounter for delivery without indication Status: Acute Assessment and Plan: continue with postop care. D/c magnesium 24 hours post continue to monitor bps. Time Spent With Patient Time: Total time spent is greater than 50% in coordination of care (as do cumented) at patient's floor/unit and/or counseling patient: Exam Narrative: Exam Narrative: incision: c/d/i ff below umbilicus
[2020-09-11] MEDS: MULTIVIT/MIN/PREN/FOL AC/IRON TABLET 1 TAB PO (09:15)
[2020-09-11] MEDS: DOCUSATE SODIUM 100 MG CAPSULE PO ×2 (09:15→19:02)
[2020-09-11] MEDS: DEXTROSE 5%/0.45% SOD CHL 1,000 ML 125 ML IV CONT (10:35)
[2020-09-11] MEDS: IBUPROFEN 600 MG TABLET PO ×2 (12:04→18:59)
--- NOTE | 2020-09-11 13:22 | WPDANLDNPN2 ---
Anes-Prog Note L&D-Neuraxial Date/Time: 09/11/20 13:22 Neuraxial medications: intrathecal PF morphine Opiod-related complaints: none Patient feedback: Patient satisfied with post-operative pain management.
--- NOTE | 2020-09-11 13:22 | WPDANLDPN2 ---
Anes-Prog Note L&D Date/Time: 09/11/20 13:22 Comfortable throughout: section Neuraxial method: spinal Epidural/Spinal procedure site: clean & non-tender Neuro status: Neuro function grossly intact. Cardiovascular status: normal Respiratory status: normal Airway patency: baseline Mental status: baseline Post-Op hydration status: normal Vital Signs: Last Vital Signs Temp 36.6 C 09/11/20 12:45 Pulse 81 09/11/20 12:45 Resp 16 09/11/20 12:45 BP 135/92 H 09/11/20 12:45 Pulse Ox 100 09/11/20 12:45 Pain score (VAS): 2 I/O: Intake & Output 09/10/20 09/11/20 09/11/20 23:59 07:59 15:59 Intake Total 200 900 Output Total 074 1617 Balance -725 -8619 Patient feedback: Patient satisfied with anesthetic care.
[2020-09-11] MEDS: RHO(D) IMMUNE GLOBULIN 300 MCG/2 ML SYRINGE IM (14:23)
--- NOTE | 2020-09-11 15:15 | PC.NURSE ---
consult with pt., mother is currently using the hospital pump without difficulties/discomfort. Mother would like instructions on her Spectra pump. Reviewed breast pump care and usage, pumping schedule, nipple care, and collection and storage of breast milk. Encouraged [id number], breast massage and manual expression to stimulate supply. Discussed milk supply and transitioning to breastmilk. Assessed patient for correct flange size, placement and draw. Patient verbalizes and demonstrates understanding of instructions.
[2020-09-11] MEDS: ONDANSETRON INJ 4 MG/2 ML VIAL IV PUSH (16:05)
[2020-09-12] MEDS: IBUPROFEN 600 MG TABLET PO ×4 (01:10→19:25)
[2020-09-12] MEDS: SIMETHICONE 80 MG TAB.CHEW PO ×3 (01:12→19:24)
[2020-09-12] MEDS: HYDROcodone/acetaminophen (*CRX) 10-325 MG TABLET 1 TAB PO (01:14)
[2020-09-12 04:25] VITALS: BP 125/75; PULSE 67; RESP 18; TEMP 36.6
[2020-09-12] MEDS: LEVOTHYROXINE SODIUM 50 MCG TABLET PO (07:11)
[2020-09-12 07:15] VITALS: BP 126/86; PULSE 64; RESP 16; TEMP 37; O2SAT 100
[2020-09-12] MEDS: MULTIVIT/MIN/PREN/FOL AC/IRON TABLET 1 TAB PO (08:46)
[2020-09-12] MEDS: DOCUSATE SODIUM 100 MG CAPSULE PO ×2 (08:46→17:14)
[2020-09-12] MEDS: HYDROcodone/acetaminophen (*CRX) 5-325 MG TABLET 1 TAB PO ×3 (08:47→19:24)
--- NOTE | 2020-09-12 10:44 | PM.OBPNVD ---
OB - PN: Subj Subjective Date/time seen: 09/12/20 10:44 Patient comments: no complaints and pain well controlled OB - PN: Obj Data Labs CBC & Chem 7: 09/11/20 04:57 09/10/20 04:35 Labs: Laboratory Results - last 24 hr 09/11/20 05:05 Blood Type B Negative Antibody Screen TNP Screen Negative Baby's Blood Type A pos Baby's DESTINEY Negative Doses of RhIg Required 1 OB - PN A/P Assessment and Plan (1) delivery delivered: Code(s): O82 - Encounter for delivery without indication Status: Acute Assessment and Plan: Continue care (2) Preeclampsia: Code(s): O14.90 - Unspecified pre-eclampsia, unspecified trimester Status: Acute Assessment and Plan: continue close observation good diuresis BP decreased last 12 hours Time Spent With Patient Time: Total time spent is greater than 50% in coordination of care (as documented) at patient's floor/unit and/or counseling patient: Exam Narrative: Exam Narrative: Inc c/d/i : Bimanual exam- vagina & uterus: other (Uterus firm, nt @U)
[2020-09-12 11:45] VITALS: BP 146/91; PULSE 60; RESP 16; TEMP 36.7; O2SAT 100
[2020-09-12 16:00] VITALS: BP 127/87; PULSE 74; RESP 16; TEMP 36.1; O2SAT 100
--- NOTE | 2020-09-12 16:34 | PC.NURSE ---
Patient viewed the discharge video Mother & Baby Care, The First Two Weeks . Patient was given the opportunity and encouraged to ask questions. Patient verbalized understanding of information shared and has been given the mother/baby guide for home reference.
[2020-09-12 20:05] VITALS: BP 133/90; PULSE 62; RESP 16; TEMP 36.6
[2020-09-13] VITALS: BP 131/68; PULSE 72
[2020-09-13] MEDS: SIMETHICONE 80 MG TAB.CHEW PO (01:15)
[2020-09-13] MEDS: IBUPROFEN 600 MG TABLET PO ×3 (01:15→12:40)
[2020-09-13] MEDS: HYDROcodone/acetaminophen (*CRX) 5-325 MG TABLET 1 TAB PO ×3 (04:09→12:41)
[2020-09-13 04:15] VITALS: BP 136/89; PULSE 74
[2020-09-13 06:45] VITALS: BP 139/87; PULSE 66; RESP 18; TEMP 36.6
[2020-09-13] MEDS: MULTIVIT/MIN/PREN/FOL AC/IRON TABLET 1 TAB PO (06:52)
[2020-09-13] MEDS: LEVOTHYROXINE SODIUM 50 MCG TABLET PO (06:52)
[2020-09-13] MEDS: DOCUSATE SODIUM 100 MG CAPSULE PO (06:52)
--- NOTE | 2020-09-13 09:46 | PM.OBPNVD ---
OB - PN: Subj Subjective Date/time seen: 09/13/20 09:46 Patient comments: no complaints and pain well controlled OB - PN: Obj Data Labs CBC & Chem 7: 09/11/20 04:57 09/10/20 04:35 OB - PN A/P Assessment and Plan (1) delivery delivered: Code(s): O82 - Encounter for delivery without indication Status: Acute Assessment and Plan: Doing well DC home (2) Preeclampsia: Code(s): O14.90 - Unspecified pre-eclampsia, unspecified trimester Status: Acute Assessment and Plan: BP stable good diuresis unsure bc Time Spent With Patient Time: Total time spent is greater than 50% in coordination of care (as documented) at patient's floor/unit and/or counseling patient: Exam Narrative: Exam Narrative: inc c/d/i : Bimanual exam- vagina & uterus: other (Uterus firm, nt @U)
[2020-09-16 10:23] VITALS: BP 144/93; PULSE 101; RESP 16; TEMP 37.2; O2SAT 98
--- NOTE | 2020-09-16 10:30 | PC.NURSE ---
Addition BP checks done 5-7 minutes apart during appt: 124/101 and 143/94 as well as first BP taken noted in Post Discharge Assessment.
--- NOTE | 2020-09-16 10:50 | PC.NURSE ---
BPs call to OB office. Report to Nurse Alyssa. Orders taken from to have patient rest, hydrate, take a few BPs at home and call with diastolic over 110 or signs of Pre-E. Patient is to keep scheduled appt for tomorrow. Patient told if unable to get ahold of office to report to L&D. Patient agrees to plan.
== END 2020-09-13 14:27 | disposition home or self-care (01) | DRG 788 ==
LOC: ANHOBPP 09-10 13:37 → ANHOB2 09-10 17:28
PROVIDERS: Obstetrics & Gynecology; Admitting Provider Obstetrics & Gynecology Gynecology; PCP Family Medicine; Visit Provider Obstetrics & Gynecology Gynecology
PROC: 10D00Z1 Extraction of Products of Conception, Low, Open Approach (ICD-10-PCS; CPT 59514; principal; 2020-09-10 12:30)
DX: O14.94 Unspecified pre-eclampsia, complicating childbirth (principal); Z37.0 Single live birth; Z3A.37 37 weeks gestation of pregnancy; O32.8XX0 Maternal care for other malpresentation of fetus, not applicable or unspecified; O43.193 Other malformation of placenta, third trimester; O99.284 Endocrine, nutritional and metabolic diseases complicating childbirth; E03.9 Hypothyroidism, unspecified; O99.52 Diseases of the respiratory system complicating childbirth; J45.909 Unspecified asthma, uncomplicated; O43.123 Velamentous insertion of umbilical cord, third trimester
CPT/HCPCS: 36415; 59025; 76816; 76820; 80053; 81003; 81050; 82570; 82575; 84156; 84550; 85025; 85027; 85461; 86592; 86850; 86880; 86900; 86901; 86902; 87086; 87088; 88307; 90384; A9270; G0378; J0131; J1100; J1200; J1580; J1885; J2274; J2370; J2405; J2590; J2790; J3475; J7120

== ENCOUNTER 2020-09-08 16:14 | Outpatient (RCR) | payer OTHER, SELFPAY ==
[2020-08-06 08:12] VITALS: BP 126/74; PULSE 85
[2020-08-20 08:46] VITALS: BP 125/69; PULSE 85
[2020-09-08 16:43] VITALS: BP 138/86; PULSE 84
[2020-09-08 17:17] LABS: Basophils Percent Auto 0.2 % (0.2-1.2); Eosinophils Absolute Auto 0.1 K/mm3 (0-0.3); Hematocrit 41.4 % (37.0-47.0); Hemoglobin 13.8 g/dL (12.0-15.0); Immature Granulocyte Absolute 0.04 K/mm3 (0.00-0.031); Immature Granulocyte Percent A 0.5 % (0-0.5); Lymphocytes Absolute Auto 1.76 K/mm3 (0.9-3.2); Lymphocytes Percent Auto 20.3 % (18.3-44.2); Mean Corpuscular HGB Conc 33.3 g/dl (32-36); Mean Corpuscular Hemoglobin 32.6 pg (26-34); Mean Corpuscular Volume 97.9 fl (80-100); Mean Platelet Volume 12.6 fl (7.4-10.4); Monocytes Absolute Auto 0.8 K/mm3 (0.1-0.6); Monocytes Percent Auto 9.3 % (2.6-8.5); Neutrophils Percent Auto 68.7 % (45.5-73.1); Platelet Count Result 104 k/mm3 (150-375); Red Blood Count 4.23 M/mm3 (4.2-5.4); Red Cell Distribution Width 12.8 % (11.5-14.5); White Blood Count 8.7 K/mm3 (4.5-10.0)
[2020-09-08 17:19] LABS: Add Urine Microscopic? NO; Appearance Urine Clear (Clear); Bilirubin Urine Negative (Negative); Blood Urine Negative (Negative); Color Urine Straw (Yellow); Glucose Urine UA Negative (Negative); Ketones Urine Negative (Negative); Leukocyte Esterase Ur Negative LEU/UL (NEGATIVE); Nitrate Urine Negative (Negative); Protein Urine Negative (Negative); Specific Grav Ur 1.006 (1.001-1.035); Urobilinogen Urine Negative mg/dL (<2.0)
[2020-09-08 17:24] LABS: Creatinine Urine 41.5 mg/dL; Total Protein Urine Random 13 mg/dL; Ur Ttl Prot Creatinine Ratio 0.31 mg/mg (0-0.20)
[2020-09-08 17:31] LABS: Alanine Aminotransferase 16 U/L (4-35); Albumin Level 3.8 g/dL (3.5-5.1); Alkaline Phosphatase 128 U/L (38-126); Anion Gap 5 mmol/L (8-16); Aspartate Amino Transferase 30 U/L (14-36); Bilirubin,Total 0.7 mg/dL (0.2-1.3); Blood Urea Nitrogen 16 mg/dL (7-17); Calcium 9.6 mg/dL (8.4-10.2); Carbon Dioxide 25 mmol/L (22-30); Chloride 106 mmol/L (98-107); Estimated Glomerular Filt Rate 56; Glucose 91 mg/dL (65-105); Potassium 3.9 mmol/L (3.4-5.0); Sodium 136 mmol/L (137-145); Uric Acid 6.1 mg/dL (2.5-7.5)
--- NOTE | 2020-09-08 17:38 | PC.NURSE ---
Called Dr. Oates with lab results. Keep overnight. Changed to observation.
== END 2020-09-11 08:13 | disposition home or self-care (01) ==
LOC: ANHOBOP 16:14
PROVIDERS: PCP Family Medicine; Visit Provider Obstetrics & Gynecology Gynecology
DX: O43.123 Velamentous insertion of umbilical cord, third trimester (principal); Z3A.32 32 weeks gestation of pregnancy; Z3A.34 34 weeks gestation of pregnancy; Z3A.36 36 weeks gestation of pregnancy
CPT/HCPCS: 36415; 59025; 80053; 81003; 82570; 84156; 84550; 85025; 87086; 87088; J0131; J1100; J1885; J2274; J2370; J2405; J2590

== ENCOUNTER 2020-12-24 09:00 | Outpatient (RCR) | payer OTHER, SELFPAY ==
--- NOTE | 2020-11-26 13:48 | PTOPEVAL ---
INITIAL PHYSICAL THERAPY EVALUATION and PLAN OF CARE Thank you for referring Nhung Stanton to [facility].? Nhung is scheduled to be seen for physical therapy? 10-14 days x 2 visits. Please review, sign, date and return this plan of care MENDOZA. I agree with and certify that the following plan of care is medically necessary. Referring Physician Date Admitting Provider: Attending Provider: Fatemeh Oates MD Referring Provider: *PT Outpatient Evaluation Start: 11/26/20 12:42 Freq: Status: Active Protocol: Document 11/26/20 12:42 SETH (Rec: 11/26/20 13:48 SETH [id number]) Therapy Assessment Status Assessment Status Assessment Status Evaluation Outpatient Past Medical History Past Medical History Source of Past Medical History Recalled from Previous Visit, Confirmed with Patient/Family Neurological History Hx Neurological Disorders No Significant History Cardiovascular History Hx Other Cardiac Disorders Yes: related SVT Respiratory History Hx Asthma Yes: in childhood Gastrointestinal History Hx Gastrointestinal Disorders No Significant History Genitourinary History Hx Genitourinary Disorders No Significant History Musculoskeletal History Hx Musculoskeletal Disorders No Significant History Hematological History Hx Hematological Disorders No Significant History Endocrine History Hx Hypothyroidism Yes: related - no meds at present HEENT History Hx HEENT Disorders No Significant History Integumentary History Hx Skin Disorders No Significant History Reproductive History Hx Reproductive Disorders No Significant History Psychosocial History Hx Psychiatric Disorders No Significant History Pain History History of Any Previous or Ongoing No Significant History Instance of Pain Anesthesia History Hx Anesthesia Reactions No Significant History Evaluation Information Problem Diagnosis pelvic floor pain Onset September 2020 Subjective Information Nhung states that she has an Query Text:As Reported By Patient/ 11 y.o. and 9 y.o. twins - Family had them vaginally - no complications. Then 2 months ago delivered surrogate niece via C section - due to fetus being breech. Since then Nhung has noticed decreased abdominal strength. During - did have an umbilical hernia - which will be surgically repaired in 1 month. Prior Level of Function Activity L
--- NOTE | 2020-12-24 09:47 | PTOPEVAL ---
PHYSICAL THERAPY DISCHARGE SUMMARY Thank you for referring Nhung Stanton to [facility].? Nhung has been seen in PT for a total of 3 visits. She has regained lower abdominal strength, able to run without difficulty, and has returned to full work activities. She is ready for d/c from PT to [facility]. I agree Nhung's discharge from PT. Referring Physician Date Admitting Provider: Attending Provider: Fatemeh Oates MD Referring Provider: Therapy Assessment Status Assessment Status Assessment Status Discharge Evaluation Information Problem Diagnosis pelvic floor pain Subjective Information Nhung reports that she is Query Text:As Reported By Patient/ feeling better. Having less Family clicking with R hip flexor - doing stretching. Able to run 5K with daughter - no problems. Able to lift heavier dogs up from floor now for Xrays without problems. Pain Assessment Timing of Pain Assessment Timing of Pain Assessment Assessment Self Report Self Report Pain Level 0 Cervical and Lumbar Muscle Testing Lumbar Strength Upper Abdominal Strength 5 Normal Lower Abdominal Strength 4+ Good+ General Exercise General Exercises Exercise Location core strengthening Exercise Description instructed in how to perform Query Text:Record Sets, Reps, levator ani contraction prior Resistance, and Position to TrA contraction Bent knee fall outs x 15 - blue theraband hip extension - bicycle - x15 reps - added arms bridging with marching x 10 reps Quadruped - altenate arm/leg lifts x 10 reps - reviewed Clams - blue theraband - 10 reps/side Lateral planks - knees flexed - lifting top leg with knees flexed - 10 reps Fwd planks - with arm extension - plank on knees - 3 reps - leading with each arm 75 cm Czech ball walk out into bridging - marching - with progression into leg extension - 10 reps - rotation - for obliques - reviewed hands/knees over ball - reviewed - planks on b
== END 2020-12-25 14:08 | disposition home or self-care (01) ==
LOC: ANHPT 09:00
PROVIDERS: PCP Family Medicine; Visit Provider Obstetrics & Gynecology Gynecology
DX: R10.2 Pelvic and perineal pain (principal)
CPT/HCPCS: 97110; 97161

== ENCOUNTER 2020-12-25 02:51 | Day surgery (SDC) | payer OTHER, SELFPAY ==
[2020-12-16 12:06] VITALS: BMI 23.6
[2020-12-25] MEDS: ACETAMINOPHEN 500 MG TABLET 1000 MG PO (10:57)
[2020-12-25] MEDS: KETOROLAC 15 MG/ML VIAL (*BKC) IV PUSH (10:57)
[2020-12-25] MEDS: LACTATED RINGERS 1,000 ML 30 ML IV CONT ×2 (10:58→13:34)
[2020-12-25 11:00] VITALS: BP 111/82; PULSE 72; RESP 16; TEMP 36.3; O2SAT 100
[2020-12-25] MEDS: SCOPOLAMINE 1.5 MG PATCH TRANSDERM (11:00)
--- NOTE | 2020-12-25 11:06 | WPDANESEPPF ---
Anes - Initial Pre Proc Eval Procedure: Operation Date: 12/25/20 12:00 Proposed Procedures p Umbilical Hernia Repair With Possible Mesh - Douglas Valero DO s Excision Right Upper Back Mass, Excision Right Thigh Skin Lesion, Excision Left Hip Skin Tag - Douglas Valero DO Date/Time: 12/25/20 11:06 Surgeon: Douglas Valero DO Pre Op Diagnosis: Umb Hernia, Back Mass 5mm, Lesion Rt Thigh 2mm Patient Data Age: 40 Gender: F Height: 1.75 m Weight: 72.57 kg Allergies Allergy/AdvReac Type Severity Reaction Status Date / Time Cephalosporins Allergy Unknown Rash Verified 12/16/20 12:05 Penicillins Allergy Unknown Hives / Verified 12/16/20 12:05 Red Face Home Medications Medication Instructions Recorded Confirmed Type cholecalciferol (vitamin D3) 250 250 mcg PO USEASDIRECTD 10/08/19 12/16/20 History mcg (10,000 unit) capsule vitamin no.138-folic acid 400 tablet PO DAILY 10/08/19 12/16/20 History 400 mcg-dha 25 mg chewable tablet cetirizine 10 mg capsule 10 mg PO DAILY 11/02/20 12/16/20 History Patient hx anesthesia problems: none Family hx anesthesia problems: none Results Review: All pre-operative results and documents have been reviewed as part of the pre-operative evaluation. [facility] Past Medical History Medical History Active heathcare surrogate Infant is her sister's child Asthma as a child Cluster headaches Hypothyroid (normal spontaneous vaginal delivery) 2009 twins 2012 PIH ( induced hypertension) depression SVT (supraventricular tachycardia) Surgical History Surgical History History of delivery [place] teeth extracted Family History Family History Sibling Family history of cardiovascular disease Other Diabetes mellitus Other Cancer Hypertension Social History Social History Smoking status: Never smoker Second hand tobacco smoke exposure: No Alcohol intake: current Drinks per week: 2 Substance use: never Substance use type: does not use Living arrangements: with family 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 Gender identity (if verbalized by the patient): Female Sexual Orientation (if Verbalized by the Patient): Straight or Heterosexual Spiritual care concerns: No Anes - Eval Final PreProcedure Day of Procedure 12/25/20 11:06 Patient weight: normal Heart: regular rate and rhythm Lungs: clear to auscultation Airway: Mallampati scale class II Neurological: alert and oriented Last oral intake: >/= 8 hours ASA classification: II Emergent: no Anesthetic plan: proceed Anesthesia type and monitoring: general LMA and standard monitoring Results Review: All pre-operative results and documents have been reviewed as part of the pre-operative evaluation. Informed Consent: The patient's anesthetic plan and its attendant risks and benefits were discussed with the patient/family/POA. Questions were solicited and answers provided to the satisfaction of the patient/family/POA.
--- NOTE | 2020-12-25 11:45 | WPDHPUPDATE1 ---
History and Physical Update Update Date/Time: 12/25/20 11:45 History and Physical has been reviewed, including an updated exam of the patient. There are NO changes in the patient's condition. Risks, benefits, and alternatives have been discussed and questions answered. Patient agrees to proceed with procedure.
--- NOTE | 2020-12-25 11:45 | PM.IMHP ---
H&P: HPI History of Present Illness Date/Time: 12/25/20 11:45 Chief Complaint: umbilical hernia Narrative: 40 yo woman presents for hernia repair and skin lesion removal. She reports no changes since last seen in office. [facility] Past Medical History Medical History Active heathcare surrogate is her sister's child Asthma as a child Cluster headaches Hypothyroid (normal spontaneous vaginal delivery) 2009 twins 2012 PIH ( induced hypertension) depression SVT (supraventricular tachycardia) Surgical History Surgical History History of delivery [place] teeth extracted Family History Family History Sibling Family history of cardiovascular disease Other Diabetes mellitus Other Cancer Hypertension Social History Social History Smoking status: Never smoker Second hand tobacco smoke exposure: No Alcohol intake: current Drinks per week: 2 Substance use: never Substance use type: does not use Living arrangements: with family 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 Gender identity (if verbalized by the patient): Female Sexual Orientation (if Verbalized by the Patient): Straight or Heterosexual Spiritual care concerns: No Meds Home Medications and Allergies Home Medications Medication Instructions Recorded Confirmed Type cholecalciferol (vitamin D3) 250 250 mcg PO USEASDIRECTD 10/08/19 12/25/20 History mcg (10,000 unit) capsule vitamin no.138-folic acid 400 tablet PO DAILY 10/08/19 12/25/20 History 400 mcg-dha 25 mg chewable tablet cetirizine 10 mg capsule 10 mg PO DAILY 11/02/20 12/25/20 History Allergies Allergy/AdvReac Type Severity Reaction Status Date / Time Cephalosporins Allergy Unknown Rash Verified 12/25/20 11:36 Penicillins Allergy Unknown Hives / Verified 12/25/20 11:36 Red Face Vital Signs Vital Signs - 24 hr 12/25/20 11:00 Temperature 36.3 C L Pulse Rate 72 Respiratory Rate 16 Blood Pressure 111/82 Pulse Oximetry 100 Exam GI: GI Palp: Yes Hernia present (small umbilical hernia) Skin: Other: left hip skin tag, right thigh skin lesion, right upper back cyst Assessment and Plan Assessment and plan (1) Umbilical hernia without mention of obstruction or gangrene: Qualifiers: Obstruction and gangrene presence: without obstruction or gangrene Qualified Code(s): K42.9 - Umbilical hernia without obstruction or gangrene Code(s): K42.9 - Umbilical hernia without obstruction or gangrene Status: Acute Assessment and Plan: I have recommended umbilical hernia repair with possible mesh, excision right thigh skin lesion, excision right upper back mass, excision left hip skin tag. I have discussed the procedure, risks, benefits, and alternatives with the patient. All questions answered. No changes since last seen in office. (2) Mass on back: Code(s): R22.2 - Localized swelling, mass and lump, trunk Status: Acute (3) Skin lesion of left leg: Code(s): L98.9 - Disorder of the skin and subcutaneous tissue, unspecified Status: Acute (4) Skin tag: Code(s): L91.8 - Other hypertrophic disorders of the skin Status: Acute
[2020-12-25] MEDS: CLINDAMYCIN 900 MG/D5W 50 ML 900 MG/50 ML PIGGYBACK 50 MG IVPB (12:10)
[2020-12-25] MEDS: LIDO 1%/EPINEPHRINE 1:100,000 50 ML VIAL 20 ML INFILTRATE (12:38)
[2020-12-25] MEDS: BUPIVACAINE HCL 0.5% PF 30 ML VIAL INFILTRATE (12:38)
[2020-12-25] MEDS: BACITRACIN OINTMENT 15 GM TUBE 1 APPLIC TOPICAL (12:53)
[2020-12-25 13:06] VITALS: BP 101/51; PULSE 82; RESP 13; TEMP 36.3; O2SAT 100
[2020-12-25 13:20] VITALS: BP 98/60; PULSE 78; RESP 17; O2SAT 100
[2020-12-25 13:35] VITALS: BP 117/69; PULSE 56; RESP 14; O2SAT 100
[2020-12-25 13:45] VITALS: BP 120/76; PULSE 53; RESP 14
[2020-12-25 14:15] VITALS: BP 123/78; PULSE 45; RESP 14
--- NOTE | 2020-12-25 14:29 | W.PM.PROC2 ---
Procedure Note - Detailed Date of Procedure 12/25/20 Pre-op Diagnosis umbilical hernia, 5 mm back mass, 2 mm right thigh skin lesion, left hip skin tag Post-op Diagnosis same Procedure Performed 1. Umbilical hernia repair 2. Excision of 5 mm back mass 3. Excision of 2 mm right thigh skin lesion 4. Excision of left hip skin tag Surgeon Douglas Valero, DO Anesthesia general and local (0.5% bupivacaine) Description of Procedure Procedure as well as risks, benefits, and alternatives were discussed with the patient. Written consent was obtained and placed in chart prior to procedure. Patient was brought back to surgical suite. She was placed supine on operating table. She was then intubated by Anesthesia Department. Her abdomen, left hip, right anterior thigh, and right upper back were prepped and draped in sterile fashion using chlorhexidine prep. 0.5% bupivacaine was infiltrated locally around the operative areas. A 2 cm curvilinear incision was made just superior to the umbilicus using a 15 blade scalpel. Electrocautery was used for hemostasis and for dissection down through the subcutaneous fat. Hernia sac was encountered and this was carefully freed up from surrounding subcutaneous fat using electrocautery. The hernia sac was freed up all the way down to the level of the fascia, and then it was transected using electrocautery. The hernia sac was sent to the lab for pathology. the hernia defect was measured and this was only measuring about 5 mm. Hernia was repaired using 0 Ethibond [id number] sutures. Total of 2 sutures were placed transversely to approximate the fascia without tension. The repair was inspected and appeared secure. 0.5% bupivacaine was infiltrated around the fascia and subcutaneous space. The deep dermis was reapproximated using 3 0 Vicryl simple interrupted sutures, and then the skin was approximated using 4 Monocryl running subcuticular suture. Exofin glue was then applied on top. I then moved my attention to the left hip skin lesion. The base of the skin tag was anesthetized with 0.5% bupivacaine. Skin tag was then excised flush with the skin using curved Metzenbaum scissors. Electrocautery was then used for hemostasis. Bacitracin ointment was then applied followed by a coverlet. The right thigh skin lesion was then anesthetized with 0.5% bupivacaine. Small elliptical incision was made around the skin lesion using a 15 blade scalpel. The skin lesion was completely excised and sent to the lab for pathology. The skin edges were then reapproximated using 3-0 Vicryl inverted interrupted sutures. Exofin glue was then applied on top. The patient was then repositioned to access the right upper back mass. The area was anesthetized with 0.5% bupivacaine. A 1 cm incision was made over the back mass and the mass was carefully sharply excised using a 15 blade scalpel. The mass was sent to the lab for pathology. Skin edges were then inspected for hemostasis. Hemostasis was achieved with electrocautery. The skin was then reapproximated using 4-0 nylon simple interrupted sutures. Bacitracin ointment was applied followed by a coverlet. The patient was then awakened from anesthesia, extubated, and transferred to recovery. Estimated Blood Loss 5 Pathology yes Complications No immediate complications Condition stable Disposition same day
== END 2020-12-25 14:45 | disposition home or self-care (01) ==
PROVIDERS: PCP Family Medicine; Visit Provider Surgery
PROC: (CPT 49585; principal; 2020-12-25 12:00)
PROC: (CPT 49585; 2020-12-25 12:00)
DX: K42.9 Umbilical hernia without obstruction or gangrene (principal); L91.8 Other hypertrophic disorders of the skin; D23.5 Other benign neoplasm of skin of trunk; D23.71 Other benign neoplasm of skin of right lower limb, including hip; E03.9 Hypothyroidism, unspecified; I47.1 Supraventricular tachycardia
CPT/HCPCS: 49585; 11200; 11440; 88302; 88304; 88305; A9270; J1100; J1885; J2250; J2590; J2704; J3010; J7120

== ENCOUNTER → 2021-11-22 10:14 | Outpatient (CLI) | payer OTHER, SELFPAY ==
--- NOTE | ~2021-11-22 | MM_ITS ---
EXAMINATION: MM screening tori BI w jarek HISTORY: Screening mammogram TECHNIQUE: Craniocaudal and mediolateral oblique 3-D tomosynthesis images were obtained and synthetic 2-D images were generated. CAD analysis was submitted and interpreted. COMPARISON: None, baseline BREAST PARENCHYMAL COMPOSITION: The breasts are extremely dense, which lowers the sensitivity of mamm ography. FINDINGS: There is no suspicious mass, calcification, or architectural distortion to suggest malignan cy in either breast. IMPRESSION: 1. No mammographic evidence of malignancy. 2. Recommend routine screening mammography in one year. BI-RADS Category 1: Negative Reviewed, dictated and finalized at location A.
== END ==
PROVIDERS: PCP Family Medicine; Visit Provider Obstetrics & Gynecology Gynecology
DX: Z12.31 Encounter for screening mammogram for malignant neoplasm of breast (principal)
CPT/HCPCS: 77063; 77067

== ENCOUNTER 2022-11-11 11:00 | Outpatient (CLI) | payer OTHER, SELFPAY ==
--- NOTE | ~2022-11-11 | MR_ITS ---
MR breast BI wo/w con 11/16/2022 12:27 CDT INDICATION: Extremely dense breasts. TECHNIQUE: MRI of the breasts perform using standard protocol pre-and post IV contrast with the follo wing sequences: Axial T2 STIR, axial T1, axial vibrant T1 with fat suppression precontrast and multip hasic postcontrast. 14 cc MultiHance administered intravenously. COMPARISON: Screening mammogram dated 11/22/2021 FINDINGS: There are no abnormalities on the precontrast sequences. There is minimal background parenc hymal enhancement. No enhancing lesions following contrast administration. No areas of enhancement meeting threshold criteria on CAD analysis. No evidence of signal abnormalities in the axillary or i nternal mammary node distributions. LEFT BREAST: No signal abnormalities on precontrast sequences. There is minimal background parenchym al enhancement. No enhancing lesions following contrast administration. No areas of enhancement me eting threshold criteria on CAD analysis. No evidence of signal abnormalities in the axillary or in ternal mammary node distributions.] IMPRESSION: 1: Right breast: Negative. No evidence of malignancy. BI-RADS category 1. Recommend annual mammo graphy follow-up. 2: Left breast: Negative. No evidence of malignancy. BI-RADS category 1. Recommend annual mammogr aphy follow-up. Follow-up MRI may be useful for supplementing mammographic evaluation as clinically indicated. Reviewed, dictated and finalized at location B. IMPRESSION: 1: Right breast: Negative. No evidence of malignancy. BI-RADS category 1. Recommend annual mammography follow-up. 2: Left breast: Negative. No evidence of malignancy. BI-RADS category 1. Re commend annual mammography follow-up. Follow-up MRI may be useful for supplementing mammographic evaluation as clinic ally indicated.
== END 2022-11-11 11:01 | disposition home or self-care (01) ==
PROVIDERS: PCP Family Medicine; Visit Provider Obstetrics & Gynecology Gynecology
DX: R92.2 Inconclusive mammogram (principal)
CPT/HCPCS: 77049; A9577; C8908

== ENCOUNTER 2023-11-16 10:34 | Outpatient (CLI) | payer OTHER, SELFPAY ==
--- NOTE | ~2023-11-16 | MM_ITS ---
EXAMINATION: MM screening tori BI w jarek HISTORY: Screening mammogram TECHNIQUE: Craniocaudal and mediolateral oblique 3-D tomosynthesis images were obtained and synthetic 2-D images were generated. CAD analysis was submitted and interpreted. COMPARISON: 11/22/2021 BREAST PARENCHYMAL COMPOSITION:Dense: The breasts are extremely dense, which lowers the sensitivity o f mammography. FINDINGS: No suspicious mass, calcification, or architectural distortion are identified in either lizeth ast to suggest malignancy. There has been no suspicious interval change. IMPRESSION: No mammographic evidence of malignancy. Recommend routine screening mammography in one year. BI-RADS Category 1: Negative Reviewed, dictated and finalized at location .
== END 2023-11-16 10:35 | disposition home or self-care (01) ==
PROVIDERS: PCP Family Medicine; Visit Provider Obstetrics & Gynecology Gynecology
DX: Z12.31 Encounter for screening mammogram for malignant neoplasm of breast (principal)
CPT/HCPCS: 77063; 77067

== ENCOUNTER 2024-11-21 12:17 | Outpatient (CLI) | payer OTHER, SELFPAY ==
--- NOTE | ~2024-11-21 | MM_ITS ---
EXAMINATION: MM screening tori BI w jarek HISTORY: Screening TECHNIQUE: Craniocaudal and mediolateral oblique 3-D tomosynthesis images were obtained and synthetic 2-D images were generated. CAD analysis was submitted and interpreted. COMPARISON: 11/22/2021 BREAST PARENCHYMAL COMPOSITION: The breasts are extremely dense, which lowers the sensitivity of mammography. FINDINGS: There is no evidence of suspicious mass, calcification, or architectural distortion to suggest malignancy in either breast. There has been no significant interval change. IMPRESSION: 1. No mammographic evidence of malignancy. Recommend routine screening mammography in one year. BI-RADS Category 1: Negative Reviewed, dictated and finalized at location Q. IMPRESSION: 1. No mammographic evidence of malignancy. Recommend routine screening mammogra phy in one year. BI-RADS Category 1: Negative
--- OUTSIDE RECORDS SUMMARY | 2024-11-21 12:20 | XMS_ITS | Encounter Summary ---
Author Organization [facility] Healthcare Address [address] [place] [address] Care Team Providers Care Paper Latcher Name Role Phone Kerry Mehta MD Primary Care Provider [phone] Encounter Details Date Type Department Care Team (Late st Contact Info) Description 12/29/2023 Orders Only [facility] Health Information Management [address] [place] [id number] Scanning, Provider Social History Tobacco Use Types Packs/Day Years Used Date Smoking Tobacco: Never Smokeless Tobacco: Never Comments:Never Alcohol Use Standard Drinks/Week Comments No 0 (1 standard drink = 0.6 oz pur e alcohol) AUDIT-C Answer Date Recorded Q1: How often do you have a drink containing alc ohol? 2-4 times a month 08/05/2022 Q2: How many drinks containi ng alcohol do you have on a typical day when you are drinking? 1 or 2 08/05/2022 Q3: How often do you have si x or more drinks on one occasion? 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
--- OUTSIDE RECORDS SUMMARY | 2024-11-21 12:20 | XMS_ITS | Clinical Summary ---
Author Organization [facility] Address [facility] [place] [address] Care Team Providers Care Emergency Veterinary Technician Name Role Phone Kerry Mehta MD Primary Care Provider [phone] Allergies Active Allergy Reactions Criticality Noted Date Comments Cephalosporins Unknown 05/05/2011 Penicillins Medications Vitamin D2 1,250 mcg (50,000 unit) capsule once a week Every other week. 03/31/19 21 Active cetirizine (ZyrTEC) 10 mg chewable tablet Take by mouth daily 01/19/20 19 Active multivitamin capsule Take 1 capsule by mouth daily Active FISH OIL-DHA-EPA ORAL Take by mouth Active olopatadine (PATADAY) 0.2 % ophthalmic solutionIndication s:Allergic Conjunctivitis 1 drop daily Ac tive adapalene-benzoyl peroxide 0.3-2.5 % gel with pump APPLY TOPICALLY EVERY DAY AT BEDTIME 12/16/19 23 Active NIFEdipine (NIFEdipine CC) 30 mg 24 hr tablet Take 1 tablet (30 mg total) by mouth daily 30 tablet 1 12/30/19 23 Active Additional Information Patient not taking.Reported on 07/15/2024 budesonide/formote rol fumarate (BUDESONIDE-FORMOT LEONILA INHAL) 02/04/20 24 Active estradioL (ESTRACE) 0.5 mg tablet 04/29/19 25 Active hydroxychloroquine (PLAQUENIL) 200 mg tablet TAKE 1 TABLET BY MOUTH TWICE DAILY 180 tablet 1 09/12/19 25 Active Active Problems Problem Noted Date Diagnosed Date Bloating 09/23/2024 Chronic diarrhea 07/17/2024 Rectal bleeding 07/17/2024 Autoantibody titer positive 06/28/2024 Long-term use of hydroxychloroquine 07/03/2023 Respiratory disorder 09/29/2022 Raynaud's disease without gangrene 06/30/2022 Assessment & Plan (07/28/2022 7:49 AM CDT): Cold immersion testing not consistent with Raynaud's Assessment & Plan (06/30/2022 12:53 PM CDT): Clinically has Raynaud's and with positive DAILSON. Referral to rheumatology sent. Bilateral upper and lower extremity cold immersion testing ordered for further evaluation. 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 Risks benefits alternatives to left GSV ablation and stab phlebectomies discussed. Risks including bleeding, infection, DVT/PE, thermal injury to the skin, need for further surgery. She wished to proceed. Assessment & Plan (06/30/2022 12:52 PM CDT): Left lower extremity CEAP C3 disease with symptomatic varicosities despite compression therapy. 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 MVP (mitral valve prolapse) 06/17/2020 Paroxysmal SVT (supraventricular tachycardia) Overview (06/08/2016): PAROX ATRIAL TACHYCARDIA Encounters Date Type Department Care Team Description 10/14/2024 5:59 AM CDT - 10/14/2024 11:59 PM CDT Hospital Encounter [facility] [address] [place] [address] Chronic diarrhea; Bloating Discharge Disposition: Discharge to home or self care 09/25/2024 Telephone [facility] [address] [place] [phone] Camille Perez RN 09/23/2024 Orders Only [facility] Gastroenterology at [facility] [address] [place] [address] [place] [phone] Eddie Daniels MD Chronic diarrhea (Primary Dx); Bloating 09/19/2024 Telephone [facility] Gastroenterology at [address] [place] [phone] Eddie Daniels MD 09/03/2024 Orders Only [facility] Gastroenterology at [address] [phone] Eddie Daniels MD 09/02/2024 Orders Only [facility] Gastroenterology at [address] [phone] Eddie Daniels MD 08/29/2024 Orders Only [facility] Gastroenterology at [address] [phone] Eddie Daniels MD 08/26/2024 Orders Only [facility] Gastroenterology at [address] [phone] Eddie Daniels MD Rectal bleeding (Primary Dx); Chronic diarrhea from Last 3 Months Immunizations Immunization Administration Dates Next Due Flucelvax Influenza Quad 01/04/2024 Influenza, Quadrivalent, Spl it, Intramuscular 12/31/2018 Influenza, Quadrivalent, Spl it, Preservative Free, Intramuscular 12/11/2022,11/17/2017,12/23/2016 Influenza, Trivalent, Preser vative Free, Intramuscular 12/14/2015 Moderna SARS-CoV-2 Monovalen t Vaccination (12+ YRS) 05/12/2020,04/14/2020 Moderna Sars-cov-2 Bivalent Vaccine 50 Mcg/0.5 mL (12+ YRS)-Blue/Noel 12/05/2021 Moderna Sars-cov-2 Monovalen t Booster Vaccination (12+ YRS) 12/31/2020 Sars-cov-2 Covid-19 Mrna, Bi valent, Original/omicron Ba.1 01/04/2024,12/11/2022 Surgical History Surgery Date Site/Laterality Comments SECTION 09/10/2020 HERNIA REPAIR 12/25/2020 VASCULAR SURGERY Left leg 10/21/2022 Medical History Medical History Date Comments SVT (supraventricular tachycardia) 2008 and 2011 With pregnancies only Allergic rhinitis Migraine-cluster headache syndrome Asthma 1993 Family History Medical History Relation Name Comments No Known Problems Brother No Known Problems Father No Known Problems Mother Cardiomyopathy Sister Laura Post- Miscarriages / Stillbirths Sister Laura Relation Name Status Comments Brother Alive Father Alive Mother Alive Sister Laura Alive Social History Tobacco Use Types Packs/Day Years Used Date Smoking Tobacco: Never Smokeless Tobacco: Never Tobacco Cessation:Counseling Given: Not Answered Comments:Never Alcohol Use Standard Drinks/Week Comments No [...] more drinks on one occasion? Never 08/05/2022 Personal Safety Answer Date Recorded Have you ever been in or are you currently in a harmful physical or emotional relationship or is someone making you feel afraid or unsafe? 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 Gender Identity Not on file Sexual Orientation Not on file Obstetrics History Last Filed Vital Signs Vital Sign Reading Time Taken Comments Blood Pressure 136/86 07/17/2024 2:32 PM CDT Pulse 82 07/17/2024 2:32 PM CDT Temperature 37.2 C (98.9 F) 01/11/2024 8:11 AM COMMUNITY SERVICE OFFICER Respiratory Rate 16 06/28/2024 9:15 AM CDT Oxygen Saturation 98% 07/15/2024 8:16 AM CDT Inhaled Oxygen Concentration - - Weight 72.6 kg (160 lb) 07/17/2024 2:32 PM CDT Height 180.3 cm (5' 11) 07/17/2024 2:32 PM CDT Body Mass Index 22.32 07/17/2024 2:32 PM CDT Plan of Treatment Health Maintenance Due Date Last Done Comments Breast Cancer Screening-Mammogram 1981 Cervical Cancer Screening 1981 Depression Screening 1981 DTaP/Tdap/Td Vaccine (1 - Tdap) 1992 Varicella Vaccines (1 of 2 - 13+ 2-dose series) 1994 Hepatitis B Screening 11/11/1999 Regular Well Visit/Exam 18-64 11/11/1999 Pneumococcal vaccine <65 (1 of 2 - PCV) 2000 Zoster Vaccine (1 of 2) 2000 HPV Vaccines (1 - 3-dose SCD M series) 2008 Covid-19 Vaccine (4 - 2024-2 6 season) 2024 01/04/2024, 12/11/2022, 12/05/2021, Additional history exists Influenza Vaccine (#1) 2024 , 12/11/2022, 12/31/2018, Additional history exists Hepatitis C Screening Completed 08/05/2022 Procedures Procedure Name Priority Date/Time Associated Diagnosis Comments BREATH TEST/HYDROGEN Routine 10/19/2024 7:47 AM CDT Chronic diarrhea Bloating FERRITIN Routine 08/29/2024 9:13 AM CDT Chronic diarrhea Rectal bleeding IRON PROFILE W/ IBC Routine 08/29/2024 9 :13 AM CDT Chronic diarrhea Rectal bleeding OVA AND PARASITE COMPLETE EXAMINATION Routine 08/27/2024 7:44 AM CDT SURGICAL PATHOLOGY Routine 08/26/2024 9: 44 AM CDT COLONOSCOPY Routine 08/26/2024 8:18 AM CDT HEPATITIS C ANTIBODY Routine 08/05/2022 10:48 AM CDT Raynaud's disease without gangrene Positive ADILSON (antinuclear antibody) from Last 3 Months or Most Recently Relevant to Health Maintenance Results * Breath test/hydrogen -Lactulose (SIBO) (10/19/2024 7:47 AM CDT) Anatomical Region Laterality Modality Other Eddie Daniels MD GI LAB PROCEDURE ORDERABLES Final Result * Iron profile w/ IBC (08/29/2024 9:13 AM CDT) Iron Bind.Cap.(TIBC) 346 250 - 450 ug/dL [facility] - 01 UIBC 205 131 - 425 ug/dL [facility] - 01 Iron 141 27 - 159 ug/dL [facility] - 01 Iron saturation 41 15 - 55 % [facility] - 01 Blood 08/29/2024 9:13 AM CDT 08/29/2024 Narrative [facility] - 08/30/2024 4:07 AM CDT Performed at: [address] [place] [address] Molded Goods Inspector Trimmer: Darnell Hardwick PhD, Phone: [phone] Eddie Daniels MD LAB BLOOD ORDERABLES Final Result [facility]CO [facility] - 01 * Ferritin (08/29/2024 9:13 AM CDT) Pathologist [facility] Ferritin 96 15 - 150 ng/mL [facility] - 01 Blood 08/29/2024 9:13 AM CDT 08/29/2024 Narrative [facility] - 08/30/2024 4:07 AM CDT Performed at: [facility] [id number] Molded Goods Inspector Trimmer: Darnell Hardwick PhD, Phone: [phone] Eddie Daniels MD LAB BLOOD ORDERABLES Final Result [facility] - 01 * Ova And Parasite Complete Examination (08/27/2024 7:44 AM CDT) Eddie Daniels MD LAB BLOOD ORDERABLES Final Result * Surgical pathology (08/26/2024 9:44 AM CDT) Tissue Eddie Daniels MD LAB PATHOLOGY ORDERABLES Fi nal Result * Colonoscopy (08/26/2024 8:18 AM CDT) Anatomical Region Laterality Modality Other Eddie Daniels MD ENDOSCOPY PROCEDURES Final Result * Hepatitis C antibody (08/05/2022 10:48 AM CDT) Hep C Ab Nonreactive Nonreactive [facility] Comment: Interpretive Data Nonreactive: Antibodies to HCV not detected. Does NOT exclude the possibility of recent exposure to HCV. Equivocal: Equivocal for HCV antibodies. Supplemental molecular testing will be automatically performed to determine infection status in accordance with current CDC screening recommendations. Reactive: Positive for HCV antibodies. This may represent current or past HCV infection. Supplemental molecular testing will be automatically performed to determine current infection status in accordance with current CDC screening recommendations. Interpretive data was last revised on 2019. Blood 08/05/2022 10:4 8 AM CDT 08/05/2022 2:16 PM CDT Yaquelin Matta MD LAB MICROBIOLOGY - GENERAL ORDERABLES Final Result Performing Organization Address City/[facility]/ZIP Co de Phone Number [facility] [address] Department [place] [address] from Last 3 Months or Most Recently Relevant to [place] [address] Care Teams Emergency Veterinary Technician Relationship Specialty Start Date End Date Kerry Mehta MD PCP - General Family Medicine 06/28/21
--- OUTSIDE RECORDS SUMMARY | 2024-11-21 12:20 | XMS_ITS | Clinical Summary ---
Author Organization [facility] Address [address] [facility] [place] [address] Care Team Providers Care Pipe Smoker Machine Operator Name Role Phone Unavailable Primary Care Provider Unavailabl e Source Comments [facility],non-owned Affiliates and Associated Physician Practices is amultiple site organization consisting of ambulatory clinics and hospital sitesin [place], [place], [place] and [place]. This disclosure is being madepursuant to the Care Everywhere program and may not contain all information available regarding this patient. Last updated 17.[facility] Allergies Active Allergy Reactions Criticality Noted Date Comments Cephalosporins 12/23/2016 Penicillins 12/23/2016 Immunizations Immunization Administration Dates Next Due INFLUENZA VACCINE, QUADR. (F LUZONE; FLULAVAL; FLUARIX; AFLURIA QUADRIVALENT; 6MO+), 0.5 ML (IIV4) 11/17/2017,12/23/2016 Social History Tobacco Use Types Packs/Day Years Used Date Smoking Tobacco: Never Assessed Comments Unknown Sex and Gender Information Value Date Recorded Sex Assigned at Not on file Legal Sex Female 9:11 AM CDT Gender Identity Not on file Sexual Orientation Not on file Plan of Treatment Health Maintenance Due Date Last Done Comments LIPID TESTING 1981 MAMMOGRAM 1981 HIV SCREENING 1996 HEPATITIS C SCREENING 11/06/1999 DTAP/TDAP/TD VACCINES (1 - Tdap) 2000 HEPATITIS B VACCINE (1 of 3 - 19+ 3-dose series) 2000 HPV VACCINE (1 - 3-dose SCDM series) 2008 DEPRESSION SCREENING 03/06/2024 COVID-19 VACCINE (2023-2 5 season) 2024 INFLUENZA VACCINE (#1) 2024 8, 12/23/2016 ZOSTER VACCINE (1 of 2) 11/11/2031 HIB VACCINE Aged Out No longer eligi ble based on patient's age to complete this topic MENINGOCOCCAL (Group B) VACCINE SHARED DECISION-MAKING Aged Out No longer eligible based on patient's age to complete this topic MENINGOCOCCAL GROUPS A/C/Y/W VACCINE Aged Out No longer eligible b ased on patient's age to complete this topic PNEUMOCOCCAL VACCINE Aged Out No long er eligible based on patient's age to complete this topic Insurance
--- OUTSIDE RECORDS SUMMARY | 2024-11-21 12:20 | XMS_ITS | Clinical Summary ---
Author Organization [address] [place] [address] Phone Care Team Providers Care Snowboarder Name Role Phone Kerry Mehta MD Primary Care Provider [phone] Allergies Active Allergy Reactions Criticality Noted Date Comments Cephalosporins Unknown 05/05/2011 Medications VIT/FE FUMARATE/FA (NETTIE ORAL) Take 1 Tab by mouth daily. Active LORATADINE ORAL Acti ve FLUTICASONE PROPIONATE (FLUTICASONE BOTH NOSTRIL) Active ergocalciferol (VITAMIN D) 50,000 unit Oral capsule Take 1 Cap by mouth every 7 days. Active CALCIUM-MAGNESIU M-ZINC ORAL Active metoprolol succinate ER 24 hour (TOPROL XL) 25 mg Oral tablet Take 1 Tab by mouth 2 times daily. 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 Gender Identity Not on file Sexual Orientation Not on file Occupation Industry Job Start Date Job End Date Not on file Not on file Not on file Not on file Plan of Treatment Health Maintenance Due Date Last Done Comments DTAP/TDAP/TD VACCINES (1 - Tdap) 2000 HEPATITIS B VACCINES (1 of 3 - 19+ 3-dose series) 2000 HPV/Cotest (21-29) 2002 HPV VACCINES (1 - 3-dose SCDM series) 2008 CERVICAL CANCER SCREENING 11/11/2011 HPV/Cotest (30-65) 11/11/2011 PAP SMEAR 11/11/2011 BREAST CANCER SCREENING 2021 INFLUENZA VACCINE (#1) 2024 11/17/2017, 2016 RSV VACCINE (60+ or ) (1 - 1-dose 75+ series) 2056 Insurance [facility] [employer] PPO [id number] Care Teams Snowboarder Relationship Specialty Start Date End Date Kerry Mehta MD [address] [place] [phone] PCP - General Family Practice 05/05/20
== END 2024-11-21 12:18 | disposition home or self-care (01) ==
LOC: ANHFOHIMG 12:18
PROVIDERS: PCP Family Medicine; Visit Provider Obstetrics & Gynecology Gynecology
DX: Z12.31 Encounter for screening mammogram for malignant neoplasm of breast (principal)
CPT/HCPCS: 77063; 77067